=== PATIENT | female | born 1945 | race Two or more races ===

== ENCOUNTER 2020-11-09 09:29 | Outpatient (REF) | payer MEDICARE, OTHER, SELFPAY ==
[2020-11-09 12:09] LABS: Alanine Aminotransferase 11 U/L (0-31); Anion Gap 13 (12-20); Aspartate Amino Transferase 21 U/L (5-31); Blood Urea Nitrogen 13 mg/dL (9-16); Calcium 9.6 mg/dL (8.4-10.2); Carbon Dioxide 27 mmol/L (22-29); Chloride 106 mmol/L (96-108); Cholesterol 234 mg/dL; Estimated Glomerular Filt Rate > 60; Glucose Fasting 75 mg/dL (60-99); HDL Cholesterol 68 mg/dL; LDL Cholesterol Calculated 154 mg/dl; Potassium 4.7 mmol/L (3.3-5.1); Sodium 141 mmol/L (135-145); Triglycerides 63 mg/dL
[2020-11-09 12:13] LABS: Vitamin D 25-OH Total 50.9 ng/mL (>30)
== END 2020-11-09 09:30 | disposition home or self-care (01) ==
LOC: HO.HMGCLDS 09:29
PROVIDERS: PCP Internal Medicine; Visit Provider Internal Medicine
DX: M81.0 Age-related osteoporosis without current pathological fracture (principal); E78.5 Hyperlipidemia, unspecified; I10 Essential (primary) hypertension; Z78.0 Asymptomatic menopausal state
CPT/HCPCS: 36415; 80048; 80061; 82306; 84450; 84460

== ENCOUNTER 2021-03-02 12:31 | Outpatient (REF) | payer MEDICARE, OTHER, SELFPAY ==
[2021-03-02 14:30] LABS: Alanine Aminotransferase 13 U/L (0-31); Anion Gap 12 (12-20); Aspartate Amino Transferase 20 U/L (5-31); Blood Urea Nitrogen 14 mg/dL (9-16); Calcium 9.8 mg/dL (8.4-10.2); Carbon Dioxide 27 mmol/L (22-29); Chloride 107 mmol/L (96-108); Cholesterol 238 mg/dL; Estimated Glomerular Filt Rate > 60; Glucose Fasting 71 mg/dL (60-99); HDL Cholesterol 77 mg/dL; LDL Cholesterol Calculated 147 mg/dl; Potassium 4.9 mmol/L (3.3-5.1); Sodium 141 mmol/L (135-145); Triglycerides 74 mg/dL
[2021-03-02 14:52] LABS: TSH reflex Free T4 0.73 uIU/mL (0.32-4.0); Vitamin D 25-OH Total 46.1 ng/mL (>30)
== END 2021-03-02 12:32 | disposition home or self-care (01) ==
LOC: HO.HMGCLDS 12:31
PROVIDERS: PCP Internal Medicine; Visit Provider Internal Medicine
DX: E78.5 Hyperlipidemia, unspecified (principal); I10 Essential (primary) hypertension; M81.0 Age-related osteoporosis without current pathological fracture; E05.00 Thyrotoxicosis with diffuse goiter without thyrotoxic crisis or storm; Z78.0 Asymptomatic menopausal state
CPT/HCPCS: 36415; 80048; 80061; 82306; 84443; 84450; 84460

== ENCOUNTER 2021-08-17 12:34 | Outpatient (REF) | payer MEDICARE, OTHER, SELFPAY ==
[2021-08-17 14:41] LABS: Aspartate Amino Transferase 21 U/L (5-31)
[2021-08-17 14:42] LABS: Alanine Aminotransferase 12 U/L (0-31); Cholesterol 250 mg/dL; HDL Cholesterol 68 mg/dL; LDL Cholesterol Calculated 160 mg/dl; Triglycerides 114 mg/dL
== END 2021-08-17 12:35 | disposition home or self-care (01) ==
LOC: HO.HMGCLDS 12:34
PROVIDERS: PCP Internal Medicine; Visit Provider Internal Medicine
DX: E78.5 Hyperlipidemia, unspecified (principal)
CPT/HCPCS: 36415; 80061; 84450; 84460

== ENCOUNTER 2022-03-14 12:07 | Outpatient (REF) | payer MEDICARE, OTHER, SELFPAY ==
[2022-03-14 14:07] LABS: Alanine Aminotransferase 15 U/L (0-31); Anion Gap 12 (12-20); Aspartate Amino Transferase 20 U/L (5-31); Blood Urea Nitrogen 12 mg/dL (9-16); Calcium 9.7 mg/dL (8.4-10.2); Carbon Dioxide 27 mmol/L (22-29); Chloride 107 mmol/L (96-108); Cholesterol 237 mg/dL; Estimated Glomerular Filt Rate > 60; Glucose Fasting 76 mg/dL (60-99); HDL Cholesterol 79 mg/dL; LDL Cholesterol Calculated 144 mg/dl; Sodium 141 mmol/L (135-145); Triglycerides 70 mg/dL
[2022-03-14 14:20] LABS: Free T4 (Free Thyroxine) 1.02 ng/dL (0.71-1.85); Thyroid Stimulating Hormone 1.02 uIU/mL (0.32-4.0); Vitamin D 25-OH Total 46.9 ng/mL (>30)
== END 2022-03-14 12:08 | disposition home or self-care (01) ==
LOC: HO.HMGCLDS 12:07
PROVIDERS: PCP Internal Medicine; Visit Provider Internal Medicine
DX: E05.00 Thyrotoxicosis with diffuse goiter without thyrotoxic crisis or storm (principal); E78.5 Hyperlipidemia, unspecified; I10 Essential (primary) hypertension; M81.0 Age-related osteoporosis without current pathological fracture; N95.9 Unspecified menopausal and perimenopausal disorder; E03.9 Hypothyroidism, unspecified
CPT/HCPCS: 36415; 80048; 80061; 82306; 84439; 84443; 84450; 84460

== ENCOUNTER 2023-02-10 12:22 | Outpatient (REF) | payer MEDICARE, OTHER, SELFPAY ==
[2023-02-10 14:51] LABS: Alanine Aminotransferase 13 U/L (0-31); Anion Gap 13 (12-20); Aspartate Amino Transferase 21 U/L (5-31); Blood Urea Nitrogen 13 mg/dL (9-16); Calcium 9.8 mg/dL (8.4-10.2); Carbon Dioxide 26 mmol/L (22-29); Chloride 108 mmol/L (96-108); Cholesterol 237 mg/dL; Estimated Glomerular Filt Rate > 60; Glucose Fasting 69 mg/dL (60-99); HDL Cholesterol 78 mg/dL; LDL Cholesterol Calculated 148 mg/dl; Potassium 4.6 mmol/L (3.3-5.1); Sodium 142 mmol/L (135-145); Thyroid Stimulating Hormone 0.93 uIU/mL (0.32-4.0); Triglycerides 57 mg/dL; Vitamin D 25-OH Total 47.9 ng/mL (>30)
== END 2023-02-10 12:23 | disposition home or self-care (01) ==
LOC: HO.HMGCLDS 12:22
PROVIDERS: PCP Internal Medicine; Visit Provider Internal Medicine
DX: E05.00 Thyrotoxicosis with diffuse goiter without thyrotoxic crisis or storm (principal); E78.5 Hyperlipidemia, unspecified; I10 Essential (primary) hypertension; M81.0 Age-related osteoporosis without current pathological fracture
CPT/HCPCS: 36415; 80048; 80061; 82306; 84443; 84450; 84460

== ENCOUNTER 2023-04-03 08:56 | Outpatient (REF) | payer MEDICARE, OTHER, SELFPAY ==
--- NOTE | ~2023-04-03 | MM_ITS ---
EXAMINATION: BONE DENSITOMETRY CLINICAL INDICATION: Osteoporosis. COMPARISON: Previous BD dated 05/05/2018 and baseline BD dated 12/16/2013. TECHNIQUE: Using a [employer] DXA System (software version: 13.1) manufactured by [employer], dual-energy x-ray absorptiometry was performed of the lumbar spine and left hip. The images are of good technical quality. Summary results are attached. FINDINGS: LEFT FEMUR, NECK: Current: BMD 0.770 g/cm2, Z-score -0.9, T-score -1.9, osteopenia. Prior: BMD 0.773 g/cm2. Baseline: BMD 0.777 g/cm2. LEFT FEMUR, TOTAL: Current: BMD 0.690 g/cm2, Z-score -1.7, T-score -2.5, osteoporosis, 3.2% decrease from previous, 2.1% decrease from baseline (<5% change is not significant). Prior: BMD 0.713 g/cm2. Baseline: BMD 0.705 g/cm2. AP SPINE L1-L2 (excluding L3 and L4): The data of L1-L4 has been changed to exclude the L3 and L4 vertebral bodies, because degenerative sclerosis at these levels may cause overestimation of lumbar spine density. Current: BMD 0.669 g/cm2, Z-score -3.0, T-score -4.1, osteoporosis, 0.4% decrease from previous, 9.6% decrease from baseline (<5% change is not significant). Prior: BMD 0.672 g/cm2. Baseline: BMD 0.740 g/cm2. IDENTIFIED RISK FACTORS: Menopause. HISTORY OF FRACTURE: None listed. MEDICATIONS: Multivitamin. MM/XR DEXA axial skeleton IMPRESSION: 1. DIAGNOSIS: Osteoporosis based on the lowest T-score value of -4.1 in the lumbar spine applying World Health Organization criteria. 2. 10-YEAR FRACTURE RISK PREDICTION, FRAX: According to the guidelines, FRAX calculation should only be performed on patients in the osteopenia bone density category. Therefore, FRAX was not performed on this patient. 3. Treatment Recommendations: NOF guidelines recommend consideration for treatment in postmenopausal women and men age 50 and older presenting with the following: -A hip or vertebral (clinical or morphometric) fracture. -T-score less than or equal to -2.5 at the femoral neck or spine after appropriate evaluation to exclude secondary causes. -Low bone mass at the hip or spine and a 10-year fracture probability by FRAX of greater than or equal to 3% for hip fracture or greater than or equal to 20% for major osteoporotic fracture based on the [place] adapted WHO algorithm. 4. Other Recommendations: All treatment decisions require clinical judgment and consideration of individual patient factors, including patient preferences, comorbidities, previous drug use, risk factors not captured in the FRAX model (e.g. frailty, falls, vitamin D deficiency, increased bone turnover, interval significant decline in bone density) and possible under or overestimation of fracture risk by FRAX. Additional medical evaluation for secondary cause of low bone mineral density may be appropriate. FUTURE SCAN RECOMMENDATION: People with diagnosed cases of osteoporosis or at high risk for fracture should have regular bone mineral density tests. For patients eligible for Medicare, routine testing is allowed once every 2 years. The testing frequency can be increased to one year for patients who have rapidly progressing disease, those who are receiving or discontinuing medical therapy to restore bone mass, or have additional risk factors.
--- NOTE | ~2023-04-03 | MM_ITS ---
EXAMINATION: MM SCREENING DIGITAL BREAST TOMOSYNTHESIS, BILATERAL CLINICAL INFORMATION: Screening. Asymptomatic. The lifetime risk of breast cancer based on the Tyrer-Cuzick Model is 2.5%. COMPARISON: Mammography: This study is compared with prior exams dating back to 2019. TECHNIQUE: Digital breast tomosynthesis is performed in both the craniocaudal and mediolateral oblique views along with computer-aided detection (CAD). Synthesized 2D images are generated from the tomosynthesis. FINDINGS: There are scattered areas of fibroglandular density (ACR BI-RADS breast composition Category b). There are no significant masses, abnormal calcifications, or other abnormalities. MM/MM tomosynthesis screening BI IMPRESSION: No mammographic evidence of malignancy. ASSESSMENT: BI-RADS BI-RADS 1 - Negative RECOMMENDATION: Routine annual mammography screening. 1 year F/U This examination should not preclude the clinical evaluation of a suspicious palpable abnormality. This patient's information was entered into a reminder system with a target due date for their next mammogram.
== END 2023-04-03 08:57 | disposition home or self-care (01) ==
LOC: HO.MAMMO 08:56
PROVIDERS: PCP Internal Medicine; Visit Provider Internal Medicine
DX: Z12.31 Encounter for screening mammogram for malignant neoplasm of breast (principal); Z13.820 Encounter for screening for osteoporosis; M81.0 Age-related osteoporosis without current pathological fracture; Z78.0 Asymptomatic menopausal state
CPT/HCPCS: 77063; 77067; 77080

== ENCOUNTER → 2023-04-03 09:30 | Outpatient (BNV) | payer MEDICARE, OTHER, SELFPAY | PROVIDERS: PCP Internal Medicine; Visit Provider Radiology Diagnostic Radiology | DX: Z12.31 Encounter for screening mammogram for malignant neoplasm of breast (principal) | CPT/HCPCS: 77063; 77067; 77080 ==

== ENCOUNTER 2023-05-13 10:50 | Outpatient (REF) | payer MEDICARE, OTHER, SELFPAY ==
[2023-05-13 15:10] LABS: Alanine Aminotransferase 13 U/L (0-31); Anion Gap 10 (12-20); Aspartate Amino Transferase 20 U/L (5-31); Blood Urea Nitrogen 15 mg/dL (9-16); Carbon Dioxide 28 mmol/L (22-29); Chloride 109 mmol/L (96-108); Cholesterol 208 mg/dL (<200); Estimated Glomerular Filt Rate > 60; Glucose Fasting 77 mg/dL (60-99); HDL Cholesterol 68 mg/dL (>40); LDL Cholesterol Calculated 128 mg/dL (<100); Potassium 4.9 mmol/L (3.3-5.1); Sodium 142 mmol/L (135-145); Triglycerides 61 mg/dL (<150)
[2023-05-13 15:34] LABS: Free T4 (Free Thyroxine) 0.88 ng/dL (0.71-1.85)
== END 2023-05-13 10:51 | disposition home or self-care (01) ==
LOC: HO.HMGCLDS 10:50
PROVIDERS: PCP Internal Medicine; Visit Provider Internal Medicine
DX: Z00.00 Encounter for general adult medical examination without abnormal findings (principal); E03.9 Hypothyroidism, unspecified; E05.00 Thyrotoxicosis with diffuse goiter without thyrotoxic crisis or storm; I10 Essential (primary) hypertension; M81.0 Age-related osteoporosis without current pathological fracture; E78.5 Hyperlipidemia, unspecified
CPT/HCPCS: 36415; 80048; 80061; 84439; 84450; 84460

== ENCOUNTER 2023-05-22 13:50 | Outpatient (AMB) | payer MEDICARE, OTHER, SELFPAY ==
[2023-05-22 13:54] VITALS: BP 142/80; PULSE 76; O2SAT 98; BMI 23.4
--- NOTE | 2023-05-22 13:54 | A.OFFPC_ITS ---
Vital Signs 05/22/23 13:54 Height 5 ft 4 in Weight 136 lb 4 oz BMI 23.4 BP 142/80 H Blood Pressure Location Rt brachial Position Sitting Pulse 76 Pulse Source Pulse Oximeter Pulse Oximetry (%) 98 Intake Visit Reasons: follow up htn, cholesterol Intake Note: pt is here for f/u htn, cholesterol Accompanied by: Self / Same As Patient Allergies No Known Allergies [No Known Allergies*] Allergy (Verified 09/02/23 07:59) Medication List - Last Reconciled 05/22/23 by Eli Miles MD amlodipine 5 mg PO QPM atorvastatin 40 mg PO DAILY epinephrine (EpiPen 2-Thierno) 0.3 mg (0.3 mL) IM Q4H PRN lisinopril 20 mg PO DAILY Tobacco use date assessed: 05/22/23 Fall risk assessment: No Falls in past year Last assessed Fall Risk: 05/22/23 Dental Screening Dental Screen Date: 05/22/23 Did you have a dental visit in the last 12 months?: Yes Did you have a dental problem in the last 6 months where you did not have access to dental care?: No Was dental information given to patient?: Patient has dentist HPI follow up htn, cholesterol HPI Details 77-year-old lady with osteoporosis, here today for follow-up on her hypertension and hyperlipidemia. She is currently taking amlodipine 5 mg at night and lisinopril 20 mg in the morning. As well as taking atorvastatin 40 mg daily. She states that she tries to follow recommended diet, and exercises regularly, swims at the [facility] for exercise [facility] Medical History Graves disease Tricuspid regurgitation PVC (premature ventricular contraction) Osteoarthritis of hip Osteoporosis Essential hypertension Dyslipidemia Surgical History History of total right hip arthroplasty History of bunionectomy Family History Mother Cervical cancer Social History Housing: House Alcohol intake: current Patient Tobacco Use Status: Never used Tobacco e-Cigarette/Vaping Use: Never Used Substance Use Type: Marijuana service: No Cognitive needs: No Hearing needs: No Vision needs: No Review of Systems Const All systems reviewed & are unremarkable except as noted in HPI and below Denies body aches, Denies fever(s), Denies headache(s) and Denies weakness Eyes Denies change in vision ENT Denies dizziness, Denies headache(s) and Denies nasal congestion Card Denies lightheadedness, Denies palpitations and Denies dyspnea Resp Denies chest congestion, Denies cough, Denies dyspnea and Denies wheezing GI Denies abdominal pain, Denies change in bowel habits and Denies heartburn Denies urinary frequency, Denies dysuria and Denies urinary urgency Musc Denies back pain and Denies muscle weakness Neuro Denies dizziness, Denies headache(s) and Denies weakness Endo Denies polydipsia, Denies polyuria and Denies palpitations Mauro/Lymph Denies easy bruising Aller/Immun Denies seasonal rhinorrhea and Denies wheezing Physical exam (Primary Care) Vital Signs: Last Vital Signs Pulse 76 05/22/23 13:54 BP 142/80 H 05/22/23 13:54 Pulse Ox 98 05/22/23 13:54 BMI result Body Mass Index 23.4 Tobacco/Smoking Status: Tobacco use Status Tobacco use date assessed 05/22/23 05/22/23 13:57 Patient Tobacco Use Status Never used Tobacco 05/22/23 13:57 e-Cigarette/Vaping Use Never Used 05/22/23 13:57 Const General: comfortable, no acute distress and alert Orientation/consciousness: patient oriented x3 Limitations: no limitations HENMT Ears: external ears normal General nose exam: Normal external nose present and No nasal discharge present Mouth: Normal oral and palatal mucosa present, oropharynx normal and moist mucous membranes Eyes General: appearance normal, both eyes and all related structures Conjunctivae: conjunctivae normal Sclerae: sclerae normal Pupils: Equal, round and reactive pupils present EOM: EOMs intact bilaterally Neck Neck: Yes full ROM, Yes no lymphadenopathy and Yes supple Resp Effort & Inspection: normal respiratory effort and able to speak in complete sentences Auscultation: clear to auscultation bilaterally Cardio Rate: regular rate Rhythm: regular rhythm Heart sounds: S1 normal heart sound present and S2 normal heart sound present GI Palpation (GI): Soft to palpation, nontender and no masses Auscultation: normal bowel sounds Back/Spine/Pelvis Back: No back tenderness Skin General skin exam: no rashes or lesions noted Neuro General: patient oriented x3, gait normal, tone normal, moves all extremities, Normal light touch and pain sensation and no focal motor deficits Cranial nerves: Yes CN's II-XII intact bilaterally and Yes Equal, round and reactive pupils present Cognition (Neuro): normal cognition Extrem General: Yes full ROM, Yes no joint enlargement, Yes no clubbing, cyanosis or edema and Yes no calf tenderness Results Reviewed Results Reviewed: ENTERED: 05/13/[address]: ORDERED: Met Prof Fast, AST, ALT, Lipid Panel, Free T4 Test Result Flag Reference Site Sodium 142 135-145 mmol/L Potassium 4.9 3.3-5.1 mmol/L CL 109 H 96-108 mmol/L CO2 28 22-29 mmol/L Gap 10 L 12-20 BUN 15 9-16 mg/dL Creat 0.77 0.5-1.4 mg/dL EGFR > 60 NOTE: For -[place] individuals, multiply the result by 1.210. Chronic Kidney Disease: Estimated GFR < 60 mL/min/1.73m2 Severe Kidney Disease: Estimated GFR < 15 mL/min/1.73m2 FBS 77 60-99 mg/dL CA 10.0 8.4-10.2 mg/dL AST (GOT) 20 5-31 U/L ALT (GPT) 13 0-31 U/L Triglyceride 61 <150 mg/dL Desirable Triglyceride: less than 150 mg/dL Borderline High Triglyceride 150-199 mg/dL High Triglyceride: 200-499 mg/dL Very High Triglyceride: greater than or equal to 5OO mg/dL Cholesterol 208 H <200 mg/dL Desirable Cholesterol: less than 200 mg/dL Borderline High Cholesterol: 200-239 mg/dL High Cholesterol: greater than 239 mg/dL LDL Calculated 128 H <100 mg/dL Desirable LDL: less than 100 mg/dL Near Optimal/Above Optimal LDL: 110-129 mg/dL Borderline High LDL: 130-159 mg/dL High LDL: 160-189 mg/dL Very High LDL: greater than or equal to 190 mg/dL HDL 68 >40 mg/dL Desirable HDL: greater than 40 mg/dL Note: This HDL assay may give artificially low results in patients with liver disease. Free T4 0.88 0.71-1.85 ng/dL Assessment and Plan Assessment & Plan (1) Osteoporosis: Code(s): M81.0 - Age-related osteoporosis without current pathological fracture Qualifiers: Osteoporosis type: age-related Presence of current pathological fracture: without current pathological fracture Qualified Code(s): M81.0 - Age- related osteoporosis without current pathological fracture Plan: Awaiting appointment for [facility] endocrine clinic, referral already ordered, will follow up, as patient still has not received any appointment date in the meantime continue with taking vitamin D3 supplements at least 2000 units daily, take adequate calcium from dietary sources, and continue doing regular weight- bearing exercises and stay active (2) Essential hypertension: Code(s): I10 - Essential (primary) hypertension Plan: Will continue on amlodipine 5 mg at night and lisinopril 20 mg. Adherence to a low-salt diet and getting regular exercise is important to achieve good blood pressure (3) Dyslipidemia: Code(s): E78.5 - Hyperlipidemia, unspecified Plan: Reviewed recent fasting lipid profile with patient with levels within normal limits . Continue with atorvastatin 40 mg daily , in addition to adherence to low-cholesterol diet and regular exercise, at least 30 minutes 3 to 4 times a week. Advised patient to make healthy food choices, eat more fruits, vegetables, whole grains, wild caught fish and low-fat dairy. Limit amount of meat and fried or fatty food products, as well as processed foods and fast foods. Follow-up scheduled with repeat fasting lipid panel in 3 months. Orders: Orders Alanine Aminotransferase 08/08/23 M81.0 - Age-related osteoporosis without current pathological fracture, I10 - Essential (primary) hypertension, E78.5 - Hyperlipidemia, unspecified, Z78.0 - Asymptomatic menopausal state Lipid Panel 08/08/23 M81.0 - Age-related osteoporosis without current pathological fracture, I10 - Essential (primary) hypertension, E78.5 - Hyperlipidemia, unspecified, Z78.0 - Asymptomatic menopausal state Basic Metabolic Panel Fasting 08/08/23 M81.0 - Age-related osteoporosis without current pathological fracture, I10 - Essential (primary) hypertension, E78.5 - Hyperlipidemia, unspecified, Z78.0 - Asymptomatic menopausal state Aspartate Amino Transferase 08/08/23 M81.0 - Age-related osteoporosis without current pathological fracture, I10 - Essential (primary) hypertension, E78.5 - Hyperlipidemia, unspecified, Z78.0 - Asymptomatic menopausal state Vitamin D 25-OH Total 08/08/23 M81.0 - Age-related osteoporosis without current pathological fracture, I10 - Essential (primary) hypertension, E78.5 - H yperlipidemia, unspecified, Z78.0 - Asymptomatic menopausal state Coding Level of Care Code Est Pt Level 3 (37202) Diagnoses Age-related osteoporosis without current pathological fracture M81.0 Osteoporosis type: age-related Presence of current pathological fracture: without current pathological fracture Essential hypertension I10 Dyslipidemia E78.5
== END 2023-05-22 14:30 | disposition home or self-care (01) ==
PROVIDERS: PCP Internal Medicine; Visit Provider Internal Medicine
DX: M81.0 Age-related osteoporosis without current pathological fracture (principal); I10 Essential (primary) hypertension; E78.5 Hyperlipidemia, unspecified
CPT/HCPCS: 99213

== ENCOUNTER 2023-08-15 10:19 | Outpatient (REF) | payer MEDICARE, OTHER, SELFPAY ==
[2023-08-15 14:33] LABS: Alanine Aminotransferase 14 U/L (0-31); Anion Gap 11 (12-20); Aspartate Amino Transferase 22 U/L (5-31); Blood Urea Nitrogen 17 mg/dL (9-16); Carbon Dioxide 29 mmol/L (22-29); Chloride 107 mmol/L (96-108); Cholesterol 234 mg/dL (<200); Estimated Glomerular Filt Rate > 60; Glucose Fasting 77 mg/dL (60-99); HDL Cholesterol 75 mg/dL (>40); LDL Cholesterol Calculated 143 mg/dL (<100); Potassium 4.7 mmol/L (3.3-5.1); Sodium 142 mmol/L (135-145); Triglycerides 83 mg/dL (<150)
[2023-08-15 15:47] LABS: Vitamin D 25-OH Total 57.4 ng/mL (>30)
== END 2023-08-15 10:20 | disposition home or self-care (01) ==
LOC: HO.HMGCLDS 10:19
PROVIDERS: PCP Internal Medicine; Visit Provider Internal Medicine
DX: M81.0 Age-related osteoporosis without current pathological fracture (principal); I10 Essential (primary) hypertension; E78.5 Hyperlipidemia, unspecified; Z78.0 Asymptomatic menopausal state
CPT/HCPCS: 36415; 80048; 80061; 82306; 84450; 84460

== ENCOUNTER 2023-09-02 07:56 | Emergency (ER) | payer MEDICARE, OTHER, SELFPAY ==
[2023-09-02 07:59] VITALS: BP 150/81; PULSE 69; RESP 16; TEMP 36.3; O2SAT 99; BMI 23.5
--- NOTE | 2023-09-02 08:33 | ED.GENADULT ---
HPI - General Adult General Chief complaint: Allergic Reaction Stated complaint: ? Allergic Reaction Time Seen by Provider: 09/02/23 08:33 History of Present Illness HPI narrative: Patient is a 77-year-old woman who has been on lisinopril for several years for hypertension. Over the last 2 years she has had episodes of facial swelling, lip swelling, and tongue swelling. She says these episodes usually last less than 24 hours. She feels that these episodes are becoming more frequent, most recently happening approximately every couple of months. Her last episode was 2 weeks ago. She says that she has spoken to her primary care doctor about whether she should stop lisinopril given these episodes of swelling but apparently no decision has been reached. She says that she had an appointment last week with her primary care doctor to discuss these episodes but there was a long wait and so she left the office before seeing her doctor. The patient spends several months of the year in [place]. She also has a doctor in [place]. She is planning to go to [place] on September 08, in about 1 week. She says that she comes to the emergency room today because her children are concerned about these episodes of swelling and she she therefore came to the emergency room so that she could tell her children that she had seen a doctor before she went to [place] on this occasion. She plans on staying in [place] till December. The patient says that she has a primary care doctor in [place] as well and that the primary care doctor prescribed an EpiPen because of these episodes once before. She keeps the EpiPen with her and says that her primary care doctor in [place] has also continued the prescription for an EpiPen. She has never used the EpiPen however. Related Data Previous Rx's Medication Instructions Recorded amlodipine 5 mg tablet 5 mg PO QPM #90 tabs 02/13/23 atorvastatin 40 mg tablet 40 mg PO DAILY #90 tabs 02/13/23 epinephrine 0.3 mg/0.3 mL 0.3 mg (0.3 mL) IM Q4H PRN 02/13/23 injection, auto-injector (EpiPen anaphylaxis #2 ea 2-Thierno) lisinopril 20 mg tablet 20 mg PO DAILY #90 tabs 02/13/23 amlodipine 5 mg tablet 5 mg PO DAILY #90 tabs 09/02/23 Allergies Allergy/AdvReac Type Severity Reaction Status Date / Time No Known Allergies Allergy Verified 09/02/23 07:59 [No Known Allergies*] Review of Systems Review of Systems: Yes all other systems are reviewed and are negative [facility] Past Medical History Medical History (Updated 09/02/23 @ 09:19 by Jarad Morales MD) Graves disease Tricuspid regurgitation PVC (premature ventricular contraction) Osteoarthritis of hip Osteoporosis Essential hypertension Dyslipidemia Surgical History History of total right hip arthroplasty History of bunionectomy Family History Family History Mother Cervical cancer Social History Social History Housing: House Alcohol intake: current Patient Tobacco Use Status: Never used Tobacco e-Cigarette/Vaping Use: Never Used Substance Use Type: Marijuana Advance Directives: No Advance Directives Information Provided: Yes service: No Cognitive needs: No Hearing needs: No Vision needs: No Physical Exam ED Vital Signs: Vital Signs - 24 hr 09/02/23 07:59 Temperature 97.3 F Pulse Rate 69 Respiratory Rate 16 Blood Pressure 150/81 H Pulse Oximetry 99 Oxygen Delivery Method Room Air BMI result Body Mass Index 23.5 Const Other: Patient is awake, alert, pleasant, cooperative. She looks well and does not appear ill in any way. There is no facial swelling of any kind. No difficulty speaking. No difficulty handling secretions. Orientation/consciousness: patient oriented x3 HENOR Other: There is no facial swelling. There is no intraoral swelling. Eyes Other: Pupils are round equal, conjunctivae are clear, extraocular movements intact Neck Other: No neck swelling. No stridor. Neck is benign. Resp Effort & Inspection: normal respiratory effort Auscultation: clear to auscultation bilaterally Cardio Other: No murmur Jugular venous distension: no JVD Rate: regular rate Rhythm: regular rhythm Skin General skin exam: no rashes or lesions noted Neuro General: patient oriented x3, gait normal, moves all extremities and CN's II-XI intact bilaterally Extrem General: Yes no pedal edema Medical Decision Making Medical Decision Making MDM Narrative: The patient presents for evaluation of intermittent episodes of facial and perioral swelling. She has been on lisinopril for a long time. This has apparently been going on for a couple of years intermittently. Episodes are sporadic and occur at most about once every 2 months. The patient has been on lisinopril during this time. The patient had pictures of herself on her phone that she showed me. The pictures clearly indicate episodes of angioedema of the face and lips. She showed me 1 picture of a swollen tongue. The fact that these episodes are sporadic and resolve spontaneously make me think that the lisinopril is probably not the culprit. Clinically the patient does not appear acutely ill. Her blood pressures were elevated but no other concerning findings were apparent in the emergency room today. The patient's presentation is complicated somewhat by the fact that she has every intention of going to [place] next week. She apparently goes to [place] for several months of the year during the winter every year. She has a doctor in [place] as well as her primary care doctor in this area. Her last episode of facial swelling was about 2 weeks ago she says. Says that she went to her local PCPs office last week because of these episodes but left because of a long wait. My overall impression is that the patient needs to see an child life assistant but this will be complicated by the fact that the patient is going to [place] next week and does not seem to want to change any plans. I think that in ordered to clarify the situation it would be good to get the patient off lisinopril. The patient had previously been prescribed amlodipine by her PCP in February of of this year but the patient says she never took it. She had for gotten she had been prescribed it. I will send a new prescription for amlodipine to her pharmacy. She will use the amlodipine instead of the lisinopril. Patient is given the contact information for [facility]. She is encouraged to make an appointment there. She should contact her PCP for for all. She has an EpiPen that she keeps with her already. She has never used the EpiPen to this point. Discharge Plan Discharge Clinical Impression: Angio-edema, Hypertension Patient Disposition: Home, Self-Care Additional Instructions: I believe that the episodes of swelling that you have had around your mouth and face are best described by the term angioedema. Angioedema can be a kind of allergic reaction. Lisinopril can cause angioedema but I am not certain that lisinopril is the cause of your angioedema. In any event I think it would be quintero to stop the lisinopril in case it is contributing to your episodes of angioedema. I have sent a prescription for a new blood pressure medicine to your pharmacy. This medicine is called amlodipine. Please take this instead of the lisinopril. You may take this in the evening. I think it would also be good for you to see an child life assistant. You may contact Dr. Tong's office. Please plan on seeing your doctor in [place] and following up with your [place] primary care doctor when you return. Please keep your EpiPen Handy in case you have a severe episode of swelling. Return to the emergency room or go to the nearest emergency room if your significantly worse at any time. Prescriptions: New amlodipine 5 mg tablet 5 mg PO DAILY Qty: 90 0RF No Action atorvastatin 40 mg tablet 40 mg PO DAILY Qty: 90 2RF amlodipine 5 mg tablet 5 mg PO QPM Qty: 90 1RF lisinopril 20 mg tablet 20 mg PO DAILY Qty: 90 3RF epinephrine [EpiPen 2-Thierno] 0.3 mg/0.3 mL auto-injector 0.3 mg IM Q4H PRN (Reason: anaphylaxis) Qty: 2 0RF Referrals: Mookie Tong DO [Physician] - (episodic angioedema) Eli Miles MD [Primary Care Provider] - (episodic angioedema, hypertension) Interventions: ED Discharge Assessment Last Done: 09/02/23 09:31 Discharge Date/Time: 09/02/23 09:32
== END 2023-09-02 09:32 | disposition home or self-care (01) ==
PROVIDERS: Emergency Provider Emergency Medicine; PCP Internal Medicine
DX: L50.0 Allergic urticaria (principal); I10 Essential (primary) hypertension
CPT/HCPCS: 99282; 99283

== ENCOUNTER 2024-02-19 08:29 | Outpatient (AMB) | payer MEDICARE, OTHER, SELFPAY ==
[2024-02-19 08:31] VITALS: BP 126/78; PULSE 66; O2SAT 98; BMI 22.8
--- NOTE | 2024-02-19 08:31 | A.OFFVIS_ITS ---
Intake Vital Signs 02/19/24 08:31 Height 5 ft 4 in Weight 133 lb BMI 22.8 BP 126/78 Blood Pressure Location Lt brachial Position Sitting Pulse 66 Pulse Source Pulse Oximeter Pulse Oximetry (%) 98 Oxygen Delivery Method Room Air Intake Visit Reasons: SWV G0439 Intake Note: Pt is here today for AWV. Pt has Bone density and mammogram done on 04/03/23. Allergies No Known Allergies [No Known Allergies*] Allergy (Verified 02/19/24 09:02) Medication List - Last Reconciled 02/19/24 by Eli Miles MD amlodipine 5 mg PO DAILY atorvastatin 40 mg PO DAILY epinephrine (EpiPen 2-Thierno) 0.3 mg (0.3 mL) IM Q4H PRN HPI SWV G0439 HPI Details SWV ? 78 year old presents for her ? Annual Wellness Visit, subsequent visit. She has hyperlipidemia currently on atorvastatin 40 mg daily, with last fasting lipids checked 08/15/2023 showing LDL cholesterol at 143 mg/dL. Her last fasting blood sugar level checked at the same day was within normal limits 77 mg/dL. She is up-to-date with her screening mammogram done 04/03/2023, has an appointment already scheduled for next month.. She would Cologuard testing done for colon cancer screening 08/27/2023 which came back with negative findings Bone density scan done [id number] showed presence of osteoporosis in lumbar spine and left femur, referred to [facility] endocrine, seen by Dr. Liang, and patient is to schedule follow-up to be started on Reclast. Patient reminded to schedule appointment with Dr. Liang to start treatment. She date with her COVID vaccine but does not want to get the booster, declines getting flu shots, up-to-date with her pneumonia vaccination but does not want to also get Shingrix vaccination. ? Medical / Social History Reviewed? Past Medical History ?Yes . ? Boomer of Care / Care Team list updated ?Yes . ? Surgical/Hospitalization History ?Yes . ? Current Medications (including OTC and supplements) ?Yes . ? Family History ?Yes . ? Tobacco Control form ?Yes . ? AUDIT-C (Alcohol use) form ?Yes . ? Illicit drug use in Social History ?Yes . ? Current diagnosis of depression? ?No ? Appropriate PHQ2/PHQ9 completed ?Yes . ? Data entered by ?Donor Support Technician and reviewed by provider ? Fall Risk ? Fall History? Have you had any falls with injury in the past year? ?No . ? Have you had two or more falls in the past year? ?No . ? Fall Risk Assessment: ?No falls in the past year . ? HRA filled out by the patient, reviewed by Provider and scanned. ? SWV ? Balance? Romberg ?negative ? Tandem walk ?Yes . ? Walk and Turn ?Yes . ? Rise from sit to stand ?Yes . ?Vision? Corrective lens ?Yes ? Vision screen ? Up-to-date, goes to my eye doctor, has beginning cataracts ?Hearing? Whisper test ?pass . ?Written Plan?Completed. See Patient Documents.? [facility] Medical History (Updated 02/19/24 @ 18:07 by Eli Miles MD) Graves disease Tricuspid regurgitation PVC (premature ventricular contraction) Osteoarthritis of hip Osteoporosis Essential hypertension Dyslipidemia Surgical History History of total right hip arthroplasty History of bunionectomy Family History Mother Cervical cancer Social History Housing: House Alcohol intake: current Patient Tobacco Use Status: Never used Tobacco e-Cigarette/Vaping Use: Never Used Substance Use Type: Marijuana service: No Cognitive needs: No Hearing needs: No Vision needs: No Female Reproductive History Menstrual Menopause type: natural Questionnaire Medicare Wellness Checkup [age] What gender do you identify with?: female During the past 4 weeks, how much have you been bothered by emotional problems such as feeling anxious, depressed, irritable, sad or downhearted, and blue?: slightly During the past 4 weeks, has your physical & emotional health limited your social activities with family, friends, neighbors, or groups?: slightly During the past 4 weeks, how much bodily pain have you generally had?: very mild pain During the past 4 weeks, was someone available to help you if you needed & wanted help?: no, not at all During the past 4 weeks, what was the hardest physical activity you could do for at least 2 minutes?: moderate Can you get to places out of walking distance without help? (For eg., can you travel alone on buses, taxis or drive your car?): Yes Can you go shopping for groceries or clothes without someone's help?: Yes Can you prepare your own meals?: Yes Can you do your housework without help?: Yes Because of any health problems, do you need the help of another person with your personal care needs such as eating, bathing, dressing or getting around the house?: No Can you handle your own money without help?: Yes During the past 4 weeks, how would you rate your health in general?: good During the past 4 weeks how have things been going for you?: pretty well Are you having difficulties driving your car?: no Do you always fasten your seat belt when you are in a car?: yes, usually During past 4 weeks, have you been bothered by the following: never: Sexual problems? and seldom: Falling or dizzy when standing up, Trouble eating well?, Teeth or denture problems?, Problems using the telephone? and Tiredness or fatigue? Have you fallen 2 or more times in the past year?: No Are you afraid of falling?: No Are you a smoker?: no During the past 4 weeks, how many drinks of wine, beer, or other alcoholic beverages did you have?: 1 drink or less per week Do you exercise for about 20 minutes 3 or more times a week?: yes, most of the time Have you been given information to help with the following?: no: Hazards in your house that might hurt you? and no: Keeping track of your medications? How often do you have trouble taking medicines the way you have been told to take them?: I always take medicine as prescribed How confident are you that you can control & manage most of your health problems?: very confident What is your race?: Black or Mini Mental State Exam (MMSE) Orientation What is the (year) (season) (date) (day) (month)?: year (2023), season (Spring), date (02/19/2024), day () and month (February) Where are we (state) (county) (town or city) (hospital) (floor)?: state ([place]), critical access hospital ([place]), town or city ([place]) and hospital/clinic ([facility]) Score Score: 9 Activity of Daily Living Bathing - sponge bath, tub bath or shower: receives no assistance (gets in/out by self, if usual bathing means Dressing - getting clothes from closets & drawers, including inner/outer garments & fasteners.: gets clothes & gets completely dressed without help Toileting - going to the 'toilet room' for urine/bowel elimination & cleaning self/arranging clothes: goes to toilet room, cleans self, arranges clothes without help Transfer: moves in & out of bed and chair without help (may use support object) Continence: controls urination/bowel movements completely by self Feeding: feeds self without help Total Score: 0 Information obtained from: patient Using telephone: independent Traveling: independent Shopping: independent Preparing meals: independent Housework: independent Taking medicine: independent Managing money: independent PHQ-9 Over the last 2 weeks, how often have you been bothered by any of the following problems? 1. Little interest or pleasure in doing things: not at all 2. Feeling down, depressed, or hopeless: not at all 3. Trouble falling or staying asleep, or sleeping too much: not at all 4. Feeling tired or having little energy: not at all 5. Poor appetite or overeating: not at all 6. Feeling bad about yourself - or that you are a failure or have let yourself or your family down: not at all 7. Trouble concentrating on things, such as reading the newspaper or watching television: not at all 8. Moving or speaking so slowly that other people could have noticed. Or the opposite - being so fidgety or restless that you have been moving around a lot more than usual: not at all 9. Thoughts that you would be better off or of hurting yourself in some way: not at all Total score: 0 Depression Screening Interpretation: Negative Depression Screening Done: Yes 79166 - PHQ-9 Billing: Yes Source: Developed by Drs. Guero Biswas, Saloni Rock, Walter Vargas and colleagues, with an educational trevon from [employer]. Physical Exam Vital Signs: Last Vital Signs Pulse 66 02/19/24 08:31 BP 126/78 02/19/24 08:31 Pulse Ox 98 02/19/24 08:31 Oxygen Delivery Method Room Air 02/19/24 08:31 BMI result Body Mass Index 22.8 Assessment & Plan Assessment & Plan (1) Encounter for subsequent annual wellness visit (AWV) in Medicare patient: Code(s): Z00.00 - Encounter for general adult medical examination without abnormal findings Plan: Medical wellness checklist reviewed, discussed with patient and updated. Copy given, patient does not want to get any vaccines. (2) Dyslipidemia: Code(s): E78.5 - Hyperlipidemia, unspecified Plan: Continue atorvastatin 40 mg daily, reinforced importance of following low- cholesterol diet and getting regular exercise. (3) Essential hypertension: Code(s): I10 - Essential (primary) hypertension Plan: Hypertension stable and controlled on amlodipine 5 mg 1 tablet daily (4) Osteoporosis: Comment: Sees [facility] endocrine, Dr. Liang who will be starting patient on Reclast Code(s): M81.0 - Age-related osteoporosis without current pathological fracture Qualifiers: Osteoporosis type: age-related Presence of current pathological fracture: without current pathological fracture Qualified Code(s): M81.0 - Age- related osteoporosis without current pathological fracture Plan: Advised to schedule appointment with Dr. Liang to start treatment for osteoporosis, patient to be on Reclast infusion (5) Tricuspid regurgitation: Code(s): I07.1 - Rheumatic tricuspid insufficiency Qualifiers: Cardiac valve disease etiology: nonrheumatic Qualified Code(s): I36.1 - Nonrheumatic tricuspid (valve) insufficiency Plan: Followed by cardiology Orders: Orders Aspartate Amino Transferase Today E05.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, E78.5 - Hyperlipidemia, unspecified, I07.1 - Rheumatic tricuspid insufficiency, I10 - Essential (primary) hypertension Alanine Aminotransferase Today E05.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, E78.5 - Hyperlipidemia, unspecified, I07.1 - Rheumatic tricuspid insufficiency, I10 - Essential (primary) hypertension MM tomosynthesis screening BI Today Z12.31 - Encounter for screening mammogram for malignant neoplasm of breast Lipid Panel Today E05.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, E78.5 - Hyperlipidemia, unspecified, I07.1 - Rheumatic tricuspid insufficiency, I10 - Essential (primary) hypertension Hemoglobin and Hematocrit Today E05.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, E78.5 - Hyperlipidemia, unspecified, I07.1 - Rheumatic tricuspid insufficiency, I10 - Essential (primary) hypertension Basic Metabolic Panel Fasting Today E05.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, E78.5 - Hyperlipidemia, unspecified, I07.1 - Rheumatic tricuspid insufficiency, I10 - Essential (primary) hypertension TSH reflex Free T4 Today E05.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, E78.5 - Hyperlipidemia, unspecified, I07.1 - Rheumatic tricuspid insufficiency, I10 - Essential (primary) hypertension Quality Reporting (2019) Depression/Bipolar (159/160/161/177) PHQ-9: Total score: 0 Coding Level of Care Code Medicare Subsequent (G0439) Diagnoses Encounter for subsequent annual wellness visit (AWV) in Medicare patient Z00.00 Dyslipidemia E78.5 Essential hypertension I10 Age-related osteoporosis without current pathological fracture M81.0 Osteoporosis type: age-related Presence of current pathological fracture: without current pathological fracture Nonrheumatic tricuspid valve regurgitation I36.1 Cardiac valve disease etiology: nonrheumatic CPT Codes Advance Care Planning - Advance Care Planning discussion: On file, no changes ([id number]) Advance Care Planning - Time spent: 1-15 minutes, on File ([id number]) Advance Care Planning Advance Care Planning discussion: On file, no changes Date of discussion: 02/19/24 Who was present: Patient Forms completed: BETTY Time spent: 1-15 minutes, on File Actual minutes spent: 15
== END 2024-02-19 09:28 | disposition home or self-care (01) ==
PROVIDERS: PCP Internal Medicine; Visit Provider Internal Medicine
DX: Z00.00 Encounter for general adult medical examination without abnormal findings (principal); E78.5 Hyperlipidemia, unspecified; I10 Essential (primary) hypertension; M81.0 Age-related osteoporosis without current pathological fracture; I36.1 Nonrheumatic tricuspid (valve) insufficiency
CPT/HCPCS: 1123F; G0439

== ENCOUNTER 2024-02-19 09:29 | Outpatient (REF) | payer MEDICARE, OTHER, SELFPAY ==
[2024-02-19 10:40] LABS: Hematocrit 39.2 % (37.0-47.0); Hemoglobin 13.3 g/dl (12.0-16.0)
[2024-02-19 11:09] LABS: Alanine Aminotransferase 15 U/L (0-31); Anion Gap 10 (12-20); Aspartate Amino Transferase 22 U/L (5-31); Blood Urea Nitrogen 13 mg/dL (9-16); Calcium 10.2 mg/dL (8.4-10.2); Carbon Dioxide 29 mmol/L (22-29); Chloride 107 mmol/L (96-108); Cholesterol 223 mg/dL (<200); Estimated Glomerular Filt Rate > 60; Glucose Fasting 85 mg/dL (60-99); HDL Cholesterol 69 mg/dL (>40); LDL Cholesterol Calculated 139 mg/dL (<100); Potassium 4.4 mmol/L (3.3-5.1); Sodium 142 mmol/L (135-145); Triglycerides 76 mg/dL (<150)
== END 2024-02-19 09:30 | disposition home or self-care (01) ==
LOC: HO.HMGCLDS 09:29
PROVIDERS: PCP Internal Medicine; Visit Provider Internal Medicine
DX: E05.00 Thyrotoxicosis with diffuse goiter without thyrotoxic crisis or storm (principal); I10 Essential (primary) hypertension; E78.5 Hyperlipidemia, unspecified; I07.1 Rheumatic tricuspid insufficiency
CPT/HCPCS: 36415; 80048; 80061; 84443; 84450; 84460; 85014; 85018

== ENCOUNTER 2024-05-18 11:08 | Outpatient (REF) | payer MEDICARE, OTHER, SELFPAY ==
--- NOTE | ~2024-05-18 | MM_ITS ---
EXAMINATION: MM SCREENING DIGITAL BREAST TOMOSYNTHESIS, BILATERAL CLINICAL INFORMATION: Screening. Asymptomatic. COMPARISON: Mammography: Comparison is made with available priors TECHNIQUE: Digital breast mammography with tomosynthesis is performed in both the craniocaudal and mediolateral oblique views along with computer-aided detection (CAD). FINDINGS: The breasts are heterogeneously dense, which may obscure small masses (ACR BI-RADS breast composition Category c). There are no significant masses, abnormal calcifications, or other abnormalities. MM/MM tomosynthesis screening BI IMPRESSION: No mammographic evidence of malignancy. ASSESSMENT: BI-RADS BI-RADS 1 - Negative RECOMMENDATION: Routine annual mammography screening. 1 year F/U This examination should not preclude the clinical evaluation of a suspicious palpable abnormality. This patient's information was entered into a reminder system with a target due date for their next mammogram. Electronically signed by: Jenifer Arrieta DO 06/01/2024 10:14 AM EDT
== END 2024-05-18 11:09 | disposition home or self-care (01) ==
LOC: HO.MAMMO 11:08
PROVIDERS: PCP Internal Medicine; Visit Provider Internal Medicine
DX: Z12.31 Encounter for screening mammogram for malignant neoplasm of breast (principal)
CPT/HCPCS: 77063; 77067

== ENCOUNTER → 2024-05-18 11:15 | Outpatient (BNV) | payer MEDICARE, OTHER, SELFPAY | PROVIDERS: PCP Internal Medicine; Visit Provider Internal Medicine | DX: Z12.31 Encounter for screening mammogram for malignant neoplasm of breast (principal) | CPT/HCPCS: 77063; 77067 ==

== ENCOUNTER 2024-05-27 08:55 | Outpatient (AMB) | payer MEDICARE, OTHER, SELFPAY ==
[2024-05-27 09:01] VITALS: BP 144/80; PULSE 50; O2SAT 98; BMI 23.3
--- NOTE | 2024-05-27 09:01 | A.OFFPC_ITS ---
Vital Signs 05/27/24 09:01 Height 5 ft 4 in Weight 136 lb BMI 23.3 BP 144/80 H Blood Pressure Location Lt brachial Position Sitting Pulse 50 Pulse Source Pulse Oximeter Pulse Oximetry (%) 98 Oxygen Delivery Method Room Air Intake Visit Reasons: TOF from Dr. Jd Chauhan Follow Up Allergies No Known Allergies [No Known Allergies*] Allergy (Verified 05/27/24 09:02) Medication List - Last Reconciled 05/27/24 by Maribell Pelaez MD alendronate (Fosamax) 70 mg PO QWEEK amlodipine 5 mg PO DAILY atorvastatin 40 mg PO DAILY epinephrine (EpiPen 2-Thierno) 0.3 mg (0.3 mL) IM Q4H PRN Tobacco use date assessed: 05/27/24 Fall risk assessment: No Falls in past year Last assessed Fall Risk: 05/27/24 Dental Screening Dental Screen Date: 05/27/24 Did you have a dental visit in the last 12 months?: Yes Did you have a dental problem in the last 6 months where you did not have access to dental care?: No Was dental information given to patient?: Patient has dentist HPI TOF from Dr. Jd Chauhan Follow Up HPI Details 78-year-old female with a history of hyp ertension, hypercholesterolemia osteoporosis osteoarthritis of the hip Graves disease coming in for the 1st time. Patient is up-to-date with Cologuard testing 08/27/2023 up-to-date with mammogram and bone density. up to , cataract PFSH Medical History (Updated 05/27/24 @ 09:26 by Maribell Pelaez MD) Graves disease Tricuspid regurgitation PVC (premature ventricular contraction) Osteoarthritis of hip Osteoporosis Essential hypertension Dyslipidemia Surgical History History of total right hip arthroplasty History of bunionectomy Family History (Updated 05/27/24 @ 09:07 by Nirali Ravi CMA) Mother Cervical cancer Son No problems noted. Son No problems noted. Son No problems noted. Daughter No problems noted. Daughter No problems noted. Daughter No problems noted. Daughter No problems noted. 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 1. Little interest or pleasure in doing things: not at all 2. Feeling down, depressed, or hopeless: not at all 3. Trouble falling or staying asleep, or sleeping too much: not at all 4. Feeling tired or having little energy: not at all 5. Poor appetite or overeating: not at all 6. Feeling bad about yourself - or that you are a failure or have let yourself or your family down: not at all 7. Trouble concentrating on things, such as reading the newspaper or watching television: not at all 8. Moving or speaking so slowly that other people could have noticed. Or the opposite - being so fidgety or restless that you have been moving around a lot more than usual: not at all 9. Thoughts that you would be better off or of hurting yourself in some way: not at all Total score: 0 Depression Screening Interpretation: Negative Depression Screening Done: Yes 78239 - PHQ-9 Billing: Yes Source: Developed by Drs. Guero Biswas, Saloni Rock, Walter Vargas and colleagues, with an educational trevon from [employer]. Thrive Questionnaire Date Thrive assessed: 05/27/24 I am a: Patient What is your living situation today?: I have a steady place to live Within the past 12 months, did the food you bought not last and you didn't have the money to get more?: Never true Within the past 12 months, did you worry whether your food would run out before you got money to buy more?: Never true Do you have trouble paying for medicines?: No Do you have trouble getting transportation to medical appointments?: No Do you have trouble paying your heating and electricity bill?: Yes Do you have trouble taking care of your child, family member or friend?: No Do you have trouble with day-to-day activities such as bathing, preparing meals, shopping, managing finances, etc.?: No Are you currently unemployed and looking for a job?: No Are you interested in more education?: Yes Please select the resources that you would like help with: Utilities Currently or been in a relationship where the following occur: No concerns reported THRIVE Score: 1 AUDIT C Alcohol Use Questionnaire (AUDIT-C) 1. How often do you have a drink containing alcohol?: 2-4 times a month 2. How many drinks containing alcohol do you have on a typical day when you are drinking?: 1 or 2 3. How often do you have six or more drinks on one occasion?: Never Total Score: 2 BENJY-7 AMB Questionnaire BENJY-7 Date BENJY - 7 assessed: 05/27/24 Feeling nervous, anxious, or on edge: 0 = Not at all Not being able to stop or control worryin = Not at all Worrying too much about different things: 0 = Not at all Trouble relaxin = Not at all Being so restless that it is hard to sit still: 0 = Not at all Becoming easily annoyed or irritable: 0 = Not at all Feeling afraid as if something awful might happen: 0 = Not at all Total BENJY-7 score (0-4 normal; 5-9 mild; 10-14 moderate; 15-21 severe): 0 Source: Developed by Drs. Guero Biswas, Saloni Rock, Walter Vargas and colleagues, with an educational trevon from [employer]. Physical exam (Primary Care) Vital Signs: Last Vital Signs Pulse 50 05/27/24 09:01 BP 144/80 H 05/27/24 09:01 Pulse Ox 98 05/27/24 09:01 Oxygen Delivery Method Room Air 05/27/24 09:01 BMI result Body Mass Index 23.3 Tobacco/Smoking Status: Tobacco use Status Tobacco use date assessed 05/27/24 05/27/24 09:09 Patient Tobacco Use Status Former Tobacco user 05/27/24 09:09 Tobacco use type Cigarette 05/27/24 09:09 e-Cigarette/Vaping Use Never Used 05/27/24 09:09 PHQ-9: PHQ-9 Score PHQ-9: Total score 0 05/27/24 09:09 Depression Screening Interpretation: Negative Thrive Assessment: Date of Thrive Assessment Date Thrive assessed 05/27/24 05/27/24 09:09 Currently or been in a relationship where the following occur: No concerns reported Const General: alert; No acute distress Eyes Conjunctivae: conjunctivae normal Resp Auscultation: clear to auscultation bilaterally Cardio Rate: regular rate Rhythm: regular rhythm GI Inspection: Yes normal to inspection Extrem General: Yes normal to inspection and No edema Assessment and Plan Assessment & Plan (1) Graves disease: Code(s): E05.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 (2) Essential hypertension: Code(s): I10 - Essential (primary) hypertension Plan: Continue with blood pressure medication. Decrease salt intake and exercise presently on amlodipine 5 mg once a day (3) Dyslipidemia: Code(s): E78.5 - Hyperlipidemia, unspecified Plan: Avoid fried foods, chicken skin, eggs, butter margarine, pastries and meat. Be it pork or beef they have a lot of cholesterol LDL goal of less than 130 and triglyceride of less than 150 (4) Osteoporosis: Comment: Sees [facility] endocrine, Dr. Liang who will be starting patient o Code(s): M81.0 - Age-related osteoporosis without current pathological fracture Qualifiers: Osteoporosis type: age-related Presence of current pathological fracture: without current pathological fracture Qualified Code(s): M81.0 - Age- related osteoporosis without current pathological fracture Plan: Up-to-date with bone density. Coding Level of Care Code Est Pt Level 4 (97201) Diagnoses Graves disease E05.00 Essential hypertension I10 Dyslipidemia E78.5 Age-related osteoporosis without current pathological fracture M81.0 Osteoporosis type: age-related Presence of current pathological fracture: without current pathological fracture
== END 2024-05-27 10:06 | disposition home or self-care (01) ==
PROVIDERS: PCP Internal Medicine; Visit Provider Internal Medicine
DX: E05.00 Thyrotoxicosis with diffuse goiter without thyrotoxic crisis or storm (principal); I10 Essential (primary) hypertension; E78.5 Hyperlipidemia, unspecified; M81.0 Age-related osteoporosis without current pathological fracture

== ENCOUNTER → 2024-05-27 08:55 | Outpatient (BNVA) | payer MEDICARE, OTHER, SELFPAY | PROVIDERS: PCP Internal Medicine; Visit Provider Internal Medicine | DX: E05.00 Thyrotoxicosis with diffuse goiter without thyrotoxic crisis or storm (principal); E78.5 Hyperlipidemia, unspecified; I10 Essential (primary) hypertension; M81.0 Age-related osteoporosis without current pathological fracture | CPT/HCPCS: 99212 ==

== ENCOUNTER 2024-08-11 09:54 | Outpatient (REF) | payer MEDICARE, OTHER, SELFPAY ==
[2024-08-11 13:58] LABS: Alanine Aminotransferase 14 U/L (0-31); Anion Gap 11 (12-20); Aspartate Amino Transferase 28 U/L (5-31); Blood Urea Nitrogen 15 mg/dL (9-16); Calcium 10.4 mg/dL (8.4-10.2); Carbon Dioxide 28 mmol/L (22-29); Chloride 108 mmol/L (96-108); Cholesterol 236 mg/dL (<200); Estimated Glomerular Filt Rate > 60; Glucose Fasting 87 mg/dL (60-99); HDL Cholesterol 73 mg/dL (>40); LDL Cholesterol Calculated 147 mg/dL (<100); Potassium 4.3 mmol/L (3.3-5.1); Sodium 143 mmol/L (135-145); TSH reflex Free T4 1.44 uIU/mL (0.32-4.0); Triglycerides 82 mg/dL (<150)
== END 2024-08-11 09:55 | disposition home or self-care (01) ==
LOC: HO.HMGCLDS 09:54
PROVIDERS: PCP Internal Medicine; Visit Provider Internal Medicine
DX: E05.00 Thyrotoxicosis with diffuse goiter without thyrotoxic crisis or storm (principal); I10 Essential (primary) hypertension; E78.5 Hyperlipidemia, unspecified
CPT/HCPCS: 36415; 80048; 80061; 84443; 84450; 84460

== ENCOUNTER 2025-02-05 10:22 | Outpatient (REF) | payer MEDICARE, OTHER, SELFPAY ==
[2025-02-05 13:39] LABS: Basophils Percent Auto 0.3 % (0-2); Eosinophils Absolute Auto 0.1 X10*3/uL (0.0-0.4); Eosinophils Percent Auto 1.4 % (0-4); Hematocrit 39.1 % (37.0-47.0); Hemoglobin 13.2 g/dl (12.0-16.0); Lymphocytes Absolute Auto 2.1 X10*3/uL (1.2-4.9); Lymphocytes Percent Auto 60.8 % (20-40); MANUAL DIFF FLAG SCAN; Mean Corpuscular HGB Conc 33.8 g/dl (31.0-35.0); Mean Corpuscular Hemoglobin 31.2 pg (27.0-33.0); Mean Corpuscular Volume 92.4 fL (80.0-98.0); Mean Platelet Volume 9.9 fL (9.4-12.3); Monocytes Absolute Auto 0.2 X10*3/uL (0.1-1.2); Monocytes Percent Auto 5.8 % (2-11); Neutrophils Absolute Auto 1.1 x10*3/uL (2.0-8.3); Neutrophils Percent Auto 31.7 % (45-73); Platelet Count 268 X10*3/uL (160-400); Red Blood Count 4.23 X10*6/uL (4.20-5.50); Red Cell Distribution Width 14.6 % (11.0-16.0); SCAN SMEAR FLAG 1; White Blood Count 3.5 X10*3/uL (4.8-10.8)
[2025-02-05 13:51] LABS: Estimated Average Glucose 103 mg/dL; Hemoglobin A1c % 5.2 % (<6.0)
[2025-02-05 13:57] LABS: Albumin Level 4.2 g/dL (3.5-5.0); Blood Urea Nitrogen 10 mg/dL (9-16); Calcium 9.9 mg/dL (8.4-10.2); Carbon Dioxide 26 mmol/L (22-29); Chloride 108 mmol/L (96-108); Estimated Glomerular Filt Rate > 60; Glucose Random 77 mg/dL (60-115); Phosphorus 3.2 mg/dL (2.7-4.5); Sodium 143 mmol/L (135-145)
[2025-02-05 13:59] LABS: Alanine Aminotransferase 14 U/L (0-31); Albumin Level 4.4 g/dL (3.5-5.0); Alkaline Phosphatase 39 U/L (39-117); Anion Gap 12 (12-20); Aspartate Amino Transferase 24 U/L (5-31); Blood Urea Nitrogen 10 mg/dL (9-16); Carbon Dioxide 26 mmol/L (22-29); Chloride 109 mmol/L (96-108); Cholesterol 248 mg/dL (<200); Estimated Glomerular Filt Rate > 60; Glucose Random 77 mg/dL (60-115); HDL Cholesterol 77 mg/dL (>40); LDL Cholesterol Calculated 156 mg/dL (<100); Potassium 4.4 mmol/L (3.3-5.1); Sodium 143 mmol/L (135-145); Total Protein 7.8 g/dL (6.5-8.0); Triglycerides 76 mg/dL (<150)
[2025-02-05 14:04] LABS: SLIDE REVIEW VERIFIED
[2025-02-05 14:16] LABS: Free T4 (Free Thyroxine) 1.06 ng/dL (0.71-1.85); Thyroid Stimulating Hormone 1.13 uIU/mL (0.32-4.0); Vitamin D 25-OH Total 48.5 ng/mL (>30); Vitamin D 25-OH Total 58.5 ng/mL (>30)
[2025-02-05 14:29] LABS: Folate 11.4 ng/mL (> or = 4.0); Vitamin B12 728 pg/mL (200-900)
== END 2025-02-05 10:23 | disposition home or self-care (01) ==
LOC: HO.HMGCLDS 10:22
PROVIDERS: PCP Internal Medicine; Referring Provider Internal Medicine Endocrinology, Diabetes & Metabolism; Visit Provider Internal Medicine
DX: M81.0 Age-related osteoporosis without current pathological fracture (principal); E78.00 Pure hypercholesterolemia, unspecified; I10 Essential (primary) hypertension; Z13.1 Encounter for screening for diabetes mellitus
CPT/HCPCS: 36415; 80053; 80061; 82040; 82306; 82310; 82374; 82435; 82565; 82607; 82746; 82947; 83036; 84100; 84132; 84295; 84439; 84443; 84520; 85025

== ENCOUNTER 2025-02-24 12:26 | Outpatient (AMB) | payer MEDICARE, OTHER, SELFPAY ==
--- NOTE | 2025-02-24 12:35 | A.OFFVIS_ITS ---
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 Aguilar, [facility] Medical History (Updated 02/24/25 @ 12:48 by Maribell Pelaez MD) Graves disease Tricuspid regurgitation PVC (premature ventricular contraction) Osteoarthritis of hip Osteoporosis Essential hypertension Dyslipidemia Surgical History History of total right hip arthroplasty History of bunionectomy Family History Mother Cervical cancer Son No problems noted. Son No problems noted. Son No problems noted. Daughter No problems noted. Daughter No problems noted. Daughter No problems noted. Daughter No problems noted. 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 Current occupational exposures/hazards: No Cognitive needs: No Hearing needs: No Vision needs: Yes Questionnaire Medicare Wellness Checkup [age] What gender do you identify with?: female During the past 4 weeks, how much have you been bothered by emotional problems such as feeling anxious, depressed, irritable, sad or downhearted, and blue?: slightly During the past 4 weeks, has your physical & emotional health limited your social activities with family, friends, neighbors, or groups?: not at all During the past 4 weeks, how much bodily pain have you generally had?: very mild pain During the past 4 weeks, was someone available to help you if you needed & wanted help?: yes, as much as I wanted Can you get to places out of walking distance without help? (For eg., can you travel alone on buses, taxis or drive your car?): Yes Can you go shopping for groceries or clothes without someone's help?: Yes Because of any health problems, do you need the help of another person with your personal care needs such as eating, bathing, dressing or getting around the house?: No Can you handle your own money without help?: Yes During the past 4 weeks, how would you rate your health in general?: good During the past 4 weeks how have things been going for you?: very well; could hardly better Are you having difficulties driving your car?: no Do you always fasten your seat belt when you are in a car?: yes, usually During past 4 weeks, have you been bothered by the following: never: Teeth or denture problems?, Problems using the telephone? and Tiredness or fatigue? and seldom: Falling or dizzy when standing up and Trouble eating well? Have you fallen 2 or more times in the past year?: No Are you afraid of falling?: No Are you a smoker?: no During the past 4 weeks, how many drinks of wine, beer, or other alcoholic beverages did you have?: no alcohol at all Do you exercise for about 20 minutes 3 or more times a week?: yes, most of the time Have you been given information to help with the following?: no: Hazards in your house that might hurt you? and no: Keeping track of your medications? How often do you have trouble taking medicines the way you have been told to take them?: I always take medicine as prescribed How confident are you that you can control & manage most of your health problems?: very confident What is your race?: Black or PHQ-9 Over the last 2 weeks, how often have you been bothered by any of the following problems? 1. Little interest or pleasure in doing things: not at all 2. Feeling down, depressed, or hopeless: not at all 3. Trouble falling or staying asleep, or sleeping too much: not at all 4. Feeling tired or having little energy: not at all 5. Poor appetite or overeating: not at all 6. Feeling bad about yourself - or that you are a failure or have let yourself or your family down: not at all 7. Trouble concentrating on things, such as reading the newspaper or watching television: not at all 8. Moving or speaking so slowly that other people could have noticed. Or the opposite - being so fidgety or restless that you have been moving around a lot more than usual: not at all 9. Thoughts that you would be better off or of hurting yourself in some way: not at all Total score: 0 Source: Developed by Drs. Guero Biswas, Saloni Rock, Walter Vargas and colleagues, with an educational trevon from [employer] PHQ-2/PHQ-9 PHQ-2 Over the last 2 weeks, how often have you been bothered by any of the following problems? 1. Little interest or pleasure in doing things: not at all 2. Feeling down, depressed, or hopeless: not at all Total score: 0 If score is 3 or greater, continue 3. Trouble falling or staying asleep, or sleeping too much: not at all 4. Feeling tired or having little energy: not at all 5. Poor appetite or overeating: not at all 6. Feeling bad about yourself - or that you are a failure or have let yourself or your family down: not at all 7. Trouble concentrating on things, such as reading the newspaper or watching television: not at all 8. Moving or speaking so slowly that other people could have noticed. Or the opposite - being so fidgety or restless that you have been moving around a lot more than usual: not at all 9. Thoughts that you would be better off or of hurting yourself in some way: not at all Total score: 0 0-4 None-Minimal, 5-9 Mild, 10-14 Moderate, 15-19 Moderately Severe, 20-27 Severe Source: Developed by Drs. Guero Biswas, Saloni Rock, Walter Vargas and colleagues, with an educational trevon from [employer] Thrive Questionnaire Date Thrive assessed: 02/24/25 I am a: Patient What is your living situation today?: I have a steady place to live Within the past 12 months, did the food you bought not last and you didn't have the money to get more?: Never true Within the past 12 months, did you worry whether your food would run out before you got money to buy more?: Never true Do you have trouble paying for medicines?: No Do you have trouble getting transportation to medical appointments?: No Do you have trouble paying your heating and electricity bill?: Yes Do you have trouble taking care of your child, family member or friend?: No Do you have trouble with day-to-day activities such as bathing, preparing meals, shopping, managing finances, etc.?: No Are you currently unemployed and looking for a job?: No Are you interested in more education?: Yes Please select the resources that you would like help with: Utilities Currently or been in a relationship where the following occur: No concerns reported THRIVE Score: 1 BENJY-7 AMB Questionnaire BENJY-7 Date BENJY - 7 assessed: 02/24/25 Feeling nervous, anxious, or on edge: 0 = Not at all Not being able to stop or control worryin = Not at all Worrying too much about different things: 0 = Not at all Trouble relaxin = Not at all Being so restless that it is hard to sit still: 0 = Not at all Becoming easily annoyed or irritable: 0 = Not at all Feeling afraid as if something awful might happen: 0 = Not at all Total BENJY-7 score (0-4 normal; 5-9 mild; 10-14 moderate; 15-21 severe): 0 Source: Developed by Drs. Guero Biswas, Saloni Rock, Walter Vargas and colleagues, with an educational trevon from [employer] Review of Systems Const Denies poor appetite and Denies weakness Eyes Denies no additional complaints ENT Reports Normal hearing present, Denies dizziness, Denies nasal congestion, Denies tinnitus and Denies sore throat Card Denies chest pain, Denies syncope, Denies rapid heart rate and Denies dyspnea Resp Denies cough and Denies dyspnea GI Denies change in stool character, Reports constipation, Denies diarrhea, Denies nausea and Denies vomiting Denies urinary frequency, Denies difficulty voiding and Denies dysuria Neuro Reports Normal hearing present, Denies confusion, Denies dizziness, Denies syncope and Denies weakness Psych Denies confusion Physical Exam Vital Signs: Last Vital Signs Pulse 58 02/24/25 12:37 BP 124/60 02/24/25 12:37 Pulse Ox 98 02/24/25 12:37 Oxygen Delivery Method Room Air 02/24/25 12:37 BMI result Body Mass Index 23.4 Const General: No confusion Orientation/consciousness: No confusion HEENT Head: Yes normocephalic Ears: external ears normal and TM's normal bilaterally Face and sinus: Yes normal facial exam Mouth: moist mucous membranes Throat: Yes tonsils normal Eyes Conjunctivae: conjunctivae normal Pupils: Equal, round and reactive pupils present and Pupil accommodation reflex normal Direct Ophthalmoscopy: normal light reflex Neck Neck: No lymphadenopathy Thyroid: Thyroid normal Chest Chest palpation & inspection: normal inspection of the chest Resp Effort & Inspection: normal respiratory effort and no audible wheezes Auscultation: clear to auscultation bilaterally, no crackles, no wheezes and lung sounds not diminished Cardio Rate: regular rate Rhythm: regular rhythm Peripheral pulses: radial pulses present and dorsalis pedis present GI Other: guaiac negative Palpation (GI): no masses Auscultation: normal bowel sounds and normoactive bowel sounds Rectal Exam - Female: deferred Skin General skin exam: no rashes or lesions noted Rashes: no rashes Neuro General: No confusion Cranial nerves: Yes Equal, round and reactive pupils present and Yes Normal hearing present Cognition (Neuro): normal cognition Gait exam (Neuro): Normal gait present Motor exam (neuro): 5/5 motor strength present throughout Deep tendon reflexes (DTR's): Right brachioradialis reflex intensity grade: 2+, Left brachioradialis reflex intensity grade: 2+, Right patellar reflex intensity grade: 2+ and Left patellar reflex intensity grade: 2+ Extrem General: No edema Immunizations Tenivac (PF) 5 Lf unit-2 Lf unit/0.5 mL intramuscular syringe Performing Provider: Maribell Pelaez MD Performing Location: [facility] Administered by: FRANKIE Simeon on 02/24/25 13:27 Dose Route Admin Location Dispensed Lot Number Expiration Date NDC [employer] Ha[employer] Feeder 0.5 mL IM Left Deltoid 0.5 mL [id number] 11/06/26 69921-547-12 [employer] Total Dispensed Waste 0.5 mL 0 % VIS Given Date VIS Provided VIS Publication Date 02/24/25 Single Vaccine 21 Eligibility Eligibility Date Funding Source Not [facility] Eligible 02/24/25 Private Assessment & Plan Assessment & Plan (1) Medicare annual wellness visit, subsequent: Code(s): Z00.00 - Encounter for general adult medical examination without abnormal findings Plan: Patient is advised to eat healthy, keep well hydrated, keep active and have adequate sleep. (2) Essential hypertension: Code(s): I10 - Essential (primary) hypertension Plan: Continue with blood pressure medication. Decrease salt intake and exercise patient on amlodipine 5 mg once a day (3) Dyslipidemia: Code(s): E78.5 - Hyperlipidemia, unspecified Plan: Avoid fried foods, chicken skin, eggs, butter margarine, pastries and meat. Be it pork or beef they have a lot of cholesterol LDL goal of less than 130 and triglyceride of less than 150 patient is on atorvastatin 40 but blood work remains elevated (4) Graves disease: Code(s): E05.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 Plan: Stable (5) Osteoporosis: Comment: Sees [facility] endocrine, Dr. Liang who will be starting patient o Code(s): M81.0 - Age-related osteoporosis without current pathological fracture Qualifiers: Osteoporosis type: age-related Presence of current pathological fracture: without current pathological fracture Qualified Code(s): M81.0 - Age- related osteoporosis without current pathological fracture Plan: Patient on Fosamax and advised repeat bone density this year Plan History of Present Illness The patient is a 79-year-old female presenting with an annual wellness examination. The patient has a history of hypertension, which is currently managed with amlodipine 5 mg daily. Her blood pressure readings have been stable, and she reports a recent reading of 124 mmHg, which she attributes to the timing of the measurement. The patient has hypercholesterolemia, with a recent LDL cholesterol level of 156 mg/dL, which is above the target of less than 130 mg/dL. She is currently on atorvastatin 40 mg daily, but her cholesterol levels remain elevated. The patient has osteoporosis and is on Fosamax, with a bone density test last conducted in March 2023. She has been advised to repeat the bone density test this year. The patient has a history of Graves' disease, which was treated with medication for six months and has been stable since. The patient reports having cataracts and undergoes annual eye examinations. The patient mentioned a rash in the gluteal region, which she described as intermittent and possibly related to dry skin. A physical examination revealed no significant findings, and the rash was not present at the time of the visit. Health Maintenance - Colon cancer screening with stool test completed in August 2023 - Mammogram up to date as of May 2024 - Bone density test last conducted in March 2023, repeat advised this year - Tetanus vaccination due Social History - Exercise: Engages in aquatherapy and walking while in [place] - Diet: Consumes fresh vegetables and fruits, avoids grapefruit due to medication interaction - Substance Use: Occasional alcohol consumption while in [place], occasional use of marijuana for sleep Review of Systems - Cardiovascular: Denies chest pain, reports stable blood pressure readings - Respiratory: Denies dyspnea or cough - Gastrointestinal: Denies nausea, vomiting, or changes in bowel habits - Genitourinary: Denies dysuria, reports nocturia depending on fluid intake - Neurological: Denies dizziness or syncope, reports occasional lightheadedness upon standing quickly - Dermatological: Reports intermittent rash in the gluteal region - Ophthalmological: Reports cataracts, denies vision changes Physical Exam General: Cooperative, healthy appearing, comfortable, no acute distress and well developed Orientation: Patient oriented x3 Limitations: No limitations Head: Normal to inspection Ears: Hearing grossly normal bilaterally, some earwax present but not obstructive Nose: Normal external nose present Face and sinus: Normal facial exam Eyes: Appearance normal, both eyes and all related structures; patient has cataracts Neck: Normal visual inspection and Yes full ROM Respiratory: Normal respiratory effort and able to speak in complete sentences. Clear to auscultation bilaterally Cardiovascular: Regular rate and rhythm. Normal S1 and S2 GI: Normal to inspection. Soft to palpation and nontender Skin: No rashes or lesions noted, except for some roughness on the skin in the buttock area, no blood detected Neuro: Patient oriented x3 Extremities: Normal to inspection Results - Labs: LDL cholesterol 156 mg/dL, total cholesterol 248 mg/dL - Labs: Normal blood count with mild leukopenia, normal platelet count, normal electrolytes, normal renal function, normal blood sugar, normal liver function, normal B12, folic acid, vitamin D, and thyroid levels Plan The patient will continue with her current antihypertensive regimen of amlodipine 5 mg daily, as her blood pressure readings are stable. For hypercholesterolemia, the patient is advised to maintain atorvastatin 40 mg daily, with a focus on dietary modifications to reduce cholesterol intake, particularly limiting egg yolk consumption to twice a week. A follow-up cholesterol test is planned in six months to assess the effectiveness of these interventions. For osteoporosis, the patient will continue on Fosamax and is advised to undergo a repeat bone density test this year to monitor bone health. Preventative care measures include ensuring vaccinations are up to date, with a tetanus shot recommended during this visit. The patient is encouraged to maintain her current exercise routine, including aquatherapy and walking, and to continue her healthy dietary habits, avoiding grapefruit due to its interaction with atorvastatin. She is also advised to monitor her alcohol and marijuana use, particularly in relation to her cardiovascular health. Patient was informed and verbally consented to the use of an ambient scribe for clinic note documentation during this visit. Discussion Notes During the visit, I discussed with the patient the importance of maintaining her current medication regimen for hypertension and hypercholesterolemia. We reviewed her cholesterol levels and the need for dietary modifications, particularly reducing egg yolk intake. I emphasized the importance of regular exercise and a healthy diet, avoiding grapefruit due to its interaction with atorvastatin. We also discussed the need for a repeat bone density test and the importance of staying up to date with vaccinations, including the tetanus shot. I advised her to monitor her alcohol and marijuana use, especially considering her cardiovascular health. Patient Instructions - Continue taking amlodipine 5 mg daily for blood pressure control. - Maintain atorvastatin 40 mg daily and limit egg yolk consumption to twice a week. - Schedule a follow-up cholesterol test in six months. - Continue Fosamax and schedule a bone density test this year. - Get a tetanus shot during this visit. - Maintain regular exercise and a healthy diet, avoiding grapefruit. - Monitor alcohol and marijuana use, especially for cardiovascular health. Orders: Orders Lipid Panel 6 Months E78.00 - Pure hypercholesterolemia, unspecified, E78.5 - Hyperlipidemia, unspecified Comprehensive Met. Panel 6 Months E78.5 - Hyperlipidemia, unspecified Td Immunization Today Z23 - Encounter for immunization Quality Reporting (2020) Depression/Bipolar (159/160/161/177) PHQ-9: Total score: 0 Coding Level of Care Code Medicare Subsequent (G0439) Diagnoses Medicare annual wellness visit, subsequent Z00.00 Essential hypertension I10 Dyslipidemia E78.5 Graves disease E05.00 Age-related osteoporosis without current pathological fracture M81.0 Osteoporosis type: age-related Presence of current pathological fracture: without current pathological fracture
[2025-02-24 12:37] VITALS: BP 124/60; PULSE 58; O2SAT 98; BMI 23.4
--- OUTSIDE RECORDS SUMMARY | 2025-02-24 13:33 | XMS_ITS | Data Portability ---
Author Organization [facility], [place], , [facility] Address [address] [place] [address] Assessment Encounter Date Assessment Date Assessment LastModified by Organization Details LastModified Time 07/13/2009 07/13/2009 Study: Screening digital mammogram Comparison: 07/07/2008, 03/02/2007 Findings: The breasts contain intermediately dense tissue. No suspicious microcalcifications, masses, or areas of architectural distortion identified. Impression: Stable mammogram without evidence of malignancy. Routine annual screening recommended. Interpretation made with the benefit of CAD. BI-RADS category 1, negative. [id number] Not available 04/08/2011 03:09:57 06/13/2011 06/13/2011 Bilateral digita l screening mammogram: Bilateral digital screening mammogram compared with prior mammograms. Breast tissue pattern is heterogeneously dense bilaterally limiting the sensitivity of mammography. Interpretation was made with the benefit of CAD. No dominant mass lesion or suspicious microcalcifications are seen in either breast. Impression: No mammographic evidence of malignancy. Annual screening mammography is recommended. BI-RADS 1: NEGATIVE [email or web address] Not available 06/13/2011 17:36:48 Plan of Treatment Reminders Order Date Submit Date Provider Last Modified By Organization Details Last Modified Time Details Appointments None record ed. Lab None record ed. Referral None record ed. Procedures None record ed. Surgeries None record ed. Imaging None record ed. Medication Orders None record ed. Patient TargetsNo targets recorded. Patient InstructionsNo instructions recorded. Reason for Referral None Reported. Results Created Date Observation Date Name Description Value Unit Range Abnormal Flag Note LastModifiedBy Organization Detail LastModifiedTime 11/26/19 14 11/23/2013 mammo gram, scree stephanie OBSERV ATION: Bilate ral digita l screen ing mammog christ: Bilate ral full field digita l screen ing mammog christ was review ed with CAD and compar ed with prior studie s. Breast tissue patter n is a mixtur e of fatty and fibrog landul ar elemen ts. No domina nt mass lesion or suspic ious microc alcifi cation s are seen in either breast . A coarse ly calcif ied fibroa denoma in the lower inner right breast and small groupi ng of few far director funeral ior calcif icatio ns right breast unchan ged from February 25, 2007 study consid ered benign . Impres rita: No mammog raphic eviden ce of malign natalio. Annual screen ing mammog scott is recomm ended. BI-RAD S 2: BENIGN FINDIN G Electr onical ly signed Ayan gonzalez Physic katie: Richard Bo MD [facility] (Imaging) [address] [place], [address], 11/25/2013 13:27:38 01/14/20 15 01/13/2015 mammo gram, scree stephanie OBSERV ATION: Bilate ral Screen ing Mammog christ Bilate ral full-f ield digita l screen ing mammog scott is obtain ed and read in conjun ction with comput er-aid ed detect ion. Compar meli made to multip le prior, most recent as 2013, and most remote 2007. There is scatte red fibrog landul ar tissue . No worris ome asymme tries or masses . No suspic ious calcif icatio ns. No areas of terri ectura l distor tion. No skin or nipple findin g of concer n is apprec iated. Chroni c left intram ammary node and coarse right calcif icatio n again noted. IMPRES RITA: No mammog raphic signs of malign natalio. Routin e screen ing is recomm ended. Patien t notifi ed by letter . BI-RAD S 2 - benign Densit y - 2 Code: G0202, 07017 POS - VMG Electr onical ly signed Ayan gonzalez Physic katie: Richard gutierrez MD [email or web address] (Imaging) [address] [place], [address], 01/13/2015 14:55:01 02/05/20 16 02/02/2016 scree stephanie- bilat eral mammo graph y OBSERV ATION: Screen ing Mammog christ COMPAR MELI: 009 throug h 01/14/20 15 Bilate ral digita l mammog scott. Comput er-aid ed detect ion system also utiliz ed. The breast s are compos ed of scatte red fibrog landul ar tissue . The overal l appear ance of the breast s is unchan ged. No new mass, asymme try, calcif icatio ns, or skin findin gs of concer n have become appare nt. IMPRES RITA: Stable appear ance of the breast s. No radiog raphic eviden ce of malign natalio. In the absenc e of a suspic ious palpab le abnorm ality, annual screen ing mammog scott is recomm ended. Patien t notifi ed by letter . BI-RAD S CATEGO RY 1 - NEGATI VE Densit y - 2 Code: 65623, G0202 POS: VMG Electr onical ly signed Readin g Physic katie: Beau davila MD [facility] (Imaging) [address] , [place], [address], 02/06/2016 10:55:14 03/10/20 21 03/09/2021 MAMMO , scree stephanie, tomos ynthe sis, bilat eral OBSERV ATION: CLINIC AL HISTOR Y: Screen ing. TECHNI QUE: 3D mammog scott (tomos ynthes is) and 2D mammog scott (C-vie w) images are genera [place]. Images review ed with a CAD system . COMPAR MELI: Prior mammog isi throug h 014. FINDIN GS: The breast parenc hyma is compos ed of scatte red areas of fibrog landul ar densit y. There are no suspic ious masses . There are no suspic ious microc alcifi cation s. The breast etrri ecture is normal . There has been no signif icant change compar ed to the prior study. IMPRES RITA: No mammog raphic eviden ce of malign natalio. Annual mammog raphic screen ing recomm ended. This facili ty uses a remind er system with a target date for the next mammog christ. Breast densit y: B. There are scatte red areas of fibrog landul ar densit y. BIRADS : 2, BENIGN Electr onical ly signed Ayan Nguyen katie: Prashant Skinner ms [facility] (Imaging) [address] , [place], [address], 03/13/2021 07:10:47 Result Notes Documentation Provider Name and Address Organization Details Recorded Time Mammo, Screening, Tomosynthesis, Bilateral : OBSERVATION: CLINICAL HISTORY: Screening. TECHNIQUE: 3D mammography (tomosynthesis) and 2D mammography (C-view) images are generated. Images reviewed with a CAD system. COMPARISON: Prior mammograms through 11/23/2013. FINDINGS: The breast parenchyma is composed of scattered areas of fibroglandular density. There are no suspicious masses. There are no suspicious microcalcifications. The breast architecture is normal. There has been no significant change compared to the prior study. IMPRESSION: No mammographic evidence of malignancy. Annual mammographic screening recommended. This facility uses a reminder system with a target date for the next mammogram. Breast density: B. There are scattered areas of fibroglandular density. BIRADS: 2, BENIGN Electronically signed Reading Physician: Tristan Madsen [facility] 03/13/2021 07:10:47 Problems Name Problem SNOMED Code Status Onset Date Resolution Date Notes Provider Name and Address Organization Details Recorded Time Bhupendraion 752091010 Active 2003 Not Available [facility] 3 03:02:05 Mammograph y abnormal 950756366 Active 2003 Not Available [facility] 3 03:02:05 Pain in limb 07360780 Completed 200507/28/2013 Not Available [facility] 3 02:00:52 Problem Notes None recorded. Medical Equipment None Reported. Vitals None Recorded Social History None recorded. Functional Status None recorded. Mental Status None recorded. Family History Nothing Reported. Medical History No medical history recorded. Gynecological HistoryNo gynecological history recorded. Obstetrics History GPAL:G 0 P 0 0 0 0 Past Encounters Encounter ID Performer Location Encounter Start Date Encounter Closed Date Diagnosis/Indication Diagnosis SNOMED-CT Code Diagnosis ICD10 Code Diagnosis Note [id number] Ramila Clinton MD Radiology , [address] [address] 10/17/2000 09:30:00 09/28/2008 02:02:29 [id number] [facility] , [address] [address] 10/30/2001 11:30:00 09/28/2008 02:02:29 [id number] [facility] , [address] [address] 05/11/2003 09:05:57 09/28/2008 02:02:29 [id number] [facility] , [address] [address] 05/07/2004 16:57:34 05/08/2004 08:55:54 [id number] [facility] , [address] [address] 06/11/2004 14:42:03 06/11/2004 16:29:03 [id number] [facility] , [address] [address] 12/09/2005 11:34:07 12/09/2005 13:27:12 [id number] [facility] , [address] [address] 02/27/2006 13:21:05 09/28/2008 02:02:29 [id number] [facility] , [address] [address] 03/02/2007 11:08:57 03/02/2007 13:06:14 [id number] [facility] , [address] [address] 07/07/2008 13:40:44 07/07/2008 14:43:24 [id number] [facility] , [address] [address] 07/13/2009 15:06:13 07/14/2009 12:14:25 [id number] [facility] Rad[facility] , [address] [address] 06/13/2011 08:55:20 06/14/2011 11:18:55 Health Concerns Section Related Observation LastModified by Organization Detai ls LastModified Time None Recorded Concern Status LastModified by Organization Details LastModified Time None Recorded Advance Directives Directive None Recorded Payers Insurance Date Sequence Insurance Name Policy Number Policy Barboza Covered Member ID Barboza Member ID Guarantor Name 03/08/2021 2 [facility] [id number] 01 Courtney Forrest Hazard [id number] Courtney Forrest-Hazard 03/13/2021 1 [place] [id number] Courtney Forrest Hazard [id number] Courtney Forrest-Hazard OBGyn Episode No OBEpisode recorded.
== END 2025-02-24 13:33 | disposition home or self-care (01) ==
LOC: HO.HMCH 12:26
PROVIDERS: PCP Internal Medicine; Visit Provider Internal Medicine
DX: Z00.00 Encounter for general adult medical examination without abnormal findings (principal); I10 Essential (primary) hypertension; E78.5 Hyperlipidemia, unspecified; E05.00 Thyrotoxicosis with diffuse goiter without thyrotoxic crisis or storm; M81.0 Age-related osteoporosis without current pathological fracture; Z23 Encounter for immunization

== ENCOUNTER → 2025-02-24 12:26 | Outpatient (BNVA) | payer MEDICARE, OTHER, SELFPAY | PROVIDERS: PCP Internal Medicine; Visit Provider Internal Medicine | DX: Z00.00 Encounter for general adult medical examination without abnormal findings (principal); Z23 Encounter for immunization; I10 Essential (primary) hypertension; E78.5 Hyperlipidemia, unspecified; E05.00 Thyrotoxicosis with diffuse goiter without thyrotoxic crisis or storm; M81.0 Age-related osteoporosis without current pathological fracture | CPT/HCPCS: 90471; 90714 ==

== ENCOUNTER 2025-05-24 10:40 | Outpatient (REF) | payer MEDICARE, OTHER, SELFPAY | END 2025-05-24 10:41 | disposition home or self-care (01) | LOC: HO.MAMMO 10:40 | PROVIDERS: PCP Internal Medicine; Visit Provider Internal Medicine | DX: Z12.31 Encounter for screening mammogram for malignant neoplasm of breast (principal) | CPT/HCPCS: 77063; 77067 ==

== ENCOUNTER → 2025-05-24 11:00 | Outpatient (BNV) | payer MEDICARE, OTHER, SELFPAY | PROVIDERS: PCP Internal Medicine; Visit Provider Internal Medicine | DX: Z12.31 Encounter for screening mammogram for malignant neoplasm of breast (principal) | CPT/HCPCS: 77063; 77067 ==

== ENCOUNTER 2025-08-26 12:45 | Outpatient (AMB) | payer MEDICARE, OTHER, SELFPAY ==
[2025-08-26 12:48] VITALS: BP 122/60; PULSE 79; RESP 18; O2SAT 97; BMI 23.0
--- NOTE | 2025-08-26 12:48 | MHC.PC.OV ---
Vital Signs 08/26/25 12:48 Height 5 ft 4 in Weight 134 lb BMI 23.0 BP 122/60 Blood Pressure Location Lt brachial Position Sitting Respiration 18 Pulse 79 Pulse Source Pulse Oximeter Temp Source Temporal Artery Scan Pulse Oximetry (%) 97 Oxygen Delivery Method Room Air Intake Visit Reasons: hypercholesterol Induction Coordination Power Engineer Required: No Accompanied by: Self / Same As Patient Allergies lisinopril Allergy (Intermediate, Verified 08/26/25 12:55) Angioedema Tobacco use date assessed: 08/26/25 Fall risk assessment: No Falls in past year Last assessed Fall Risk: 08/26/25 Dental Screening Dental Screen Date: 08/26/25 Did you have a dental visit in the last 12 months?: Yes Did you have a dental problem in the last 6 months where you did not have access to dental care?: No Was dental information given to patient?: Patient has dentist HPI HPI Comments History of Present Illness Details History of Present Illness The patient is a 79-year-old female who presents for a follow-up visit for management of her chronic conditions. Her medical history is significant for hypercholesterolemia, osteoporosis, hypertension, hip osteoarthritis, and Graves' disease. Regarding health maintenance, her last Cologuard was in August 2023, and her mammogram is up to date. Her last bone density scan was in March 2023. She is on alendronate for osteoporosis. Her last blood work in January revealed an LDL of 156 and mild leukopenia, but otherwise normal blood count, electrolytes, and renal function. She is prescribed atorvastatin 40 mg for her high cholesterol but has not had recent follow-up labs. She admits to recent unhealthy eating habits, including consuming fast food from [employer] and snacking at night. The patient is concerned about her legs becoming thinner and questions whether she is losing muscle mass or bone mass. She reports being physically active, engaging in aquatherapy three days per week. Her immunizations are up to date for tetanus and pneumonia, and she has received all COVID-19 vaccines. She has never had a flu shot and declines it. She is planning a trip to visit her daughter in [facility]. Health Maintenance A new lab requisition for a fasting lipid panel, CBC, and metabolic panel was ordered. Travel health recommendations were discussed for her upcoming trip to [facility], including the potential need for malaria prophylaxis and vaccines for typhoid, hepatitis A, and hepatitis B. The patient will schedule a follow-up visit for a complete physical after her lab work is done. Social History - Residence: The patient lives in [place], [place]. - Family: She is and has seven children. 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 - Diet: She reports recent unhealthy eating habits, including consuming fast food ([employer]) and snacking at night, though she also reports eating fruits and meals with vegetables. - Exercise: Engages in aquatherapy three times a week. - Travel: She is planning international travel to [facility] to visit her daughter. Results - Labs (from January): - CBC: Mild leukopenia, otherwise normal. - CMP: Normal electrolytes, good renal function, normal liver function, and normal blood sugar. - Lipid Panel: LDL 156 mg/dL, HDL 77 mg/dL. - Imaging/Screening: - Bone Density Scan (March 2023): Findings suggest - weak bones. Actual report not reviewed. - Cologuard (August 2023): Completed, results not discussed. - Mammogram (recent): Up to date, results not discussed. [facility] Medical History Graves disease Tricuspid regurgitation PVC (premature ventricular contraction) Osteoarthritis of hip Osteoporosis Essential hypertension Dyslipidemia Surgical History History of total right hip arthroplasty History of bunionectomy Family History Mother Cervical cancer Son No problems noted. Son No problems noted. Son No problems noted. Daughter No problems noted. Daughter No problems noted. Daughter No problems noted. Daughter No problems noted. Social History Housing: House Alcohol intake: current Comment: goes [place] 2-3 x a week 1-2 cerv[place], and shot Patient Tobacco Use Status: Former Tobacco user Tobacco use type: Cigarette Years Smoked: quit 2001 e-Cigarette/Vaping Use: Never Used Second Hand Smoke Exposure: No Substance Use Type: Marijuana service: No Current occupational status: employed Current occupation: [employer] Current occupational exposures/hazards: No Cognitive needs: No Hearing needs: No Vision needs: Yes Questionnaire Thrive Questionnaire Date Thrive assessed: 08/26/25 I am a: Patient What is your living situation today?: I have a steady place to live Within the past 12 months, did the food you bought not last and you didn't have the money to get more?: Never true Within the past 12 months, did you worry whether your food would run out before you got money to buy more?: Never true Do you have trouble paying for medicines?: No Do you have trouble getting transportation to medical appointments?: No Do you have trouble paying your heating and electricity bill?: Yes Do you have trouble taking care of your child, family member or friend?: No Do you have trouble with day-to-day activities such as bathing, preparing meals, shopping, managing finances, etc.?: No Are you currently unemployed and looking for a job?: No Are you interested in more education?: Yes Currently or been in a relationship where the following occur: No concerns reported THRIVE Score: 1 BENJY-7 AMB Questionnaire BENJY-7 Date BENJY - 7 assessed: 02/24/25 Source: Developed by Drs. Guero Biswas, Saloni Rock, Walter Vargas and colleagues, with an educational trevon from [employer]. Review of Systems Narrative Review of Systems - Musculoskeletal: Reports a perception of her legs being thinner than they used to be and questions if this is due to loss of muscle or bone mass. - All other systems were reviewed and are negative. Physical exam (Primary Care) Vital Signs: Last Vital Signs Pulse 79 08/26/25 12:48 Resp 18 08/26/25 12:48 BP 122/60 08/26/25 12:48 Pulse Ox 97 08/26/25 12:48 Oxygen Delivery Method Room Air 08/26/25 12:48 BMI result Body Mass Index 23.0 Tobacco/Smoking Status: Tobacco use Status Tobacco use date assessed 08/26/25 08/26/25 12:58 Patient Tobacco Use Status Former Tobacco user 08/26/25 12:58 Tobacco use type Cigarette 08/26/25 12:58 e-Cigarette/Vaping Use Never Used 08/26/25 12:58 Thrive Assessment: Date of Thrive Assessment Date Thrive assessed 08/26/25 08/26/25 12:58 Currently or been in a relationship where the following occur: No concerns reported Narrative Physical Exam - A physical exam was deferred for this visit. Const General: alert; No acute distress Eyes Conjunctivae: conjunctivae normal Resp Auscultation: clear to auscultation bilaterally Cardio Rate: regular rate Rhythm: regular rhythm GI Inspection: Yes normal to inspection Extrem General: Yes normal to inspection and No edema Coding Level of Care Code Est Pt Level 4 (88276) Add On Problem Visit Only Diagnoses Essential hypertension I10 Dyslipidemia E78.5 Age-related osteoporosis without current pathological fracture M81.0 Osteoporosis type: age-related Presence of current pathological fracture: without current pathological fracture Assessment & Plan Assessment & Plan (1) Essential hypertension: Code(s): I10 - Essential (primary) hypertension Category: Medical Plan: Continue with blood pressure medication. Decrease salt intake and exercise on amlodipine 5 mg once a day (2) Dyslipidemia: Code(s): E78.5 - Hyperlipidemia, unspecified Category: Medical Plan: Avoid fried foods, chicken skin, eggs, butter margarine, pastries and meat. Be it pork or beef they have a lot of cholesterol LDL goal of less than 130 and triglyceride of less than 150 on atorvastatin 40 mg once a day patient is reminded to get the blood work done. (3) Osteoporosis: Comment: Sees [facility] endocrine, Dr. Liang who will be starting patient o Code(s): M81.0 - Age-related osteoporosis without current pathological fracture Category: Medical Qualifiers: Osteoporosis type: age-related Presence of current pathological fracture: without current pathological fracture Qualified Code(s): M81.0 - Age-related osteoporosis without current pathological fracture Plan: Patient's bone density is due and is on alendronate Plan Plan Patient was informed and verbally consented to the use of an ambient scribe for clinic note documentation during this visit. 1. Hypercholesterolemia The patient's last LDL was elevated at 156 mg/dL despite treatment with atorvastatin 40 mg. She has not had follow-up labs to monitor treatment efficacy. The plan is to continue atorvastatin 40 mg daily with a goal LDL of less than 130 and triglycerides less than 150. A fresh lab request for a fasting lipid panel was provided. Dietary counseling was provided, emphasizing the need to reduce intake of fast food and unhealthy snacks. 2. Hypertension The patient's hypertension is managed with amlodipine 5 mg once a day. Renal function and electrolytes will be rechecked with the upcoming blood work. 3. Osteoporosis The patient has a diagnosis of osteoporosis with weak bones noted and is taking alendronate. Her last bone density scan was in March 2023, and a follow-up is now due. An order for a repeat bone density scan will be placed. The patient was encouraged to continue her physical activity, and it was explained that building specific muscle groups requires targeted exercises. 4. Mild Leukopenia The mild leukopenia noted on the blood work from January will be re-evaluated with a repeat CBC included in the upcoming lab order. Discussion Notes I reviewed with the patient that her cholesterol was high on her last labs despite taking atorvastatin 40 mg. I explained the importance of follow-up blood work to ensure the medication is effective and used a visual aid to illustrate how cholesterol builds up in blood vessels, leading to heart attacks. We discussed her diet, and I advised her to make sensible food choices and avoid fast foods. I informed the patient that she is due for a repeat bone density scan to monitor her osteoporosis, and an order would be placed. In response to her concerns about losing leg muscle mass, I explained that swimming is excellent exercise but that building specific muscles requires different, targeted movements. We also reviewed her vaccination status, confirming she is up to date on tetanus and pneumonia. I provided counseling on potential health needs for her upcoming travel to [facility] [place], including vaccines for hepatitis A/B, typhoid, and possible malaria prophylaxis, depending on her specific plans. The patient agreed to complete fasting blood work and will schedule a follow-up appointment for a complete physical exam to review the results. Patient Instructions - Please go to the laboratory to get your fasting blood work done. - You should not eat or drink anything except water for at least 8 hours before this test. - I have put in an order for you to get a new bone density scan. - Please schedule this at your convenience. - Continue to take your current medications as prescribed, including atorvastatin for cholesterol and alendronate for your bones. - Remember to eat sensibly and avoid fast food and unhealthy snacks to help manage your cholesterol. - Your exercise in the pool is great; keep up with your physical activity. - I recommend you ask your daughter for more details about your trip to [facility] so we can determine the specific vaccines or medications you may need for travel. - Please schedule a follow-up appointment to come back for a complete physical after you have completed your blood tests. Orders: Orders XR DEXA axial skeleton Today M81.0 - Age-related osteoporosis without current pathological fracture
== END 2025-08-26 13:25 | disposition home or self-care (01) ==
LOC: HO.HMCH 12:46
PROVIDERS: PCP Internal Medicine; Visit Provider Internal Medicine
DX: I10 Essential (primary) hypertension (principal); E78.5 Hyperlipidemia, unspecified; M81.0 Age-related osteoporosis without current pathological fracture

== ENCOUNTER → 2025-08-26 12:45 | Outpatient (BNVA) | payer MEDICARE, OTHER, SELFPAY | PROVIDERS: PCP Internal Medicine; Visit Provider Internal Medicine | DX: I10 Essential (primary) hypertension (principal); M81.0 Age-related osteoporosis without current pathological fracture; E78.00 Pure hypercholesterolemia, unspecified; D72.819 Decreased white blood cell count, unspecified; Z79.899 Other long term (current) drug therapy | CPT/HCPCS: 99212 ==